=== PATIENT | male | born 1990 | race Caucasian/White ===

== ENCOUNTER 2020-11-24 06:20 | Emergency (ER) | payer OTHER ==
[~2020-11-24] VITALS: Ht 177.8 cm; Wt 65.8 kg
[2020-11-24 06:54] LABS: INFLUENZA A ANTIGEN Negative (Negative); INFLUENZA B ANTIGEN Negative (Negative)
[2020-11-24 07:00] VITALS: BP 149/68
== END 2020-11-24 07:00 | disposition home or self-care (01) ==
LOC: M.ERS 06:20
PROVIDERS: Personal Emergency Response Attendant
DX: U07.1 COVID-19 (principal)